=== PATIENT | female | born 1995 | race Caucasian/White ===

== ENCOUNTER 2019-08-18 12:01 | Emergency (ER) | payer BC ==
[~2019-08-18] VITALS: Ht 175.3 cm; Wt 63.5 kg
[2019-08-18] MEDS ORDERED: NOHOMEMEDICATIONS (12:16)
[2019-08-18 12:34] LABS: HEMATOCRIT 37.7 % (37.0-47.0); HEMOGLOBIN 12.6 gm/dL (12.0-15.0); MCH 30.6 pg (26.0-34.0); MCHC 33.4 g/dL (28.0-37.0); MCV 91.7 fL (80.0-100.0); PLATELET COUNT 159 thou/uL (150-400); RBC 4.11 mil/uL (4.20-5.00); RDW 12.8 % (10.5-14.5); WBC 3.8 thou/uL (4.0-11.0)
[2019-08-18 12:42] LABS: CALCIUM 8.5 mg/dL (8.5-10.1); CREATININE 0.8 mg/dL (0.6-1.0); POTASSIUM 3.2 mmol/L (3.5-5.1)
[2019-08-18 12:48] LABS: ALBUMIN 4.2 g/dL (3.4-5.0); TOTAL BILIRUBIN 0.4 mg/dL (<0.1-1.0); TOTAL PROTEIN 7.6 g/dL (6.4-8.2)
[2019-08-18] MEDS ORDERED: ZOFRAN ODT4 MG PO ×2 (14:15→14:17)
[2019-08-18 14:55] VITALS: BP 105/59
== END 2019-08-18 14:56 | disposition home or self-care (01) ==
LOC: ER 12:01
PROVIDERS: Emergency Medicine
DX: J11.1 Influenza due to unidentified influenza virus with other respiratory manifestations (principal); Z88.1 Allergy status to other antibiotic agents